=== PATIENT | female | born 1985 | race Caucasian/White ===

== ENCOUNTER 2019-06-18 21:34 | Emergency (ER) | payer OTHER ==
[2019-06-18 21:46] VITALS: TEMP 98.4; BMI 27.4
--- NOTE | 2019-06-18 22:04 | PDOC ---
Attending Attestation - Resident Resident Name: Mariajose Russo - ED Attending Attestation I have performed the following: I have examined & evaluated the patient, The case was reviewed & discussed with the resident, I agree w/resident's findings & plan - HPI HPI: 06/18/19 22:15 Pt comes with epigastric pain; states that it was one episode post prandial Pt ran out of her pantoprazol; she took her brother's pepcid with some relief. Last year's endoscopy shows gastritis. - Physicial Exam PE: 06/18/19 22:17 Pt has normal heart lungs afebrile no rashes HEENT normla + epigastric pain no flank pain no C/C/E - Medical Decision Making 06/18/19 22:55 We will check basic labs and ensure that this is a gastritis and not pancreatitis or cholecystitis. Pt is feeling better; we will hydrate and image as needed 06/18/19 23:22 Pt has a WBC count elevation and an eearly UTI. We will treat with bactrim DS 06/18/19 23:44 Pt's pain is returning; we will get a CT scan to r/o colitis; or other infectious cause of epigastric pain. 06/19/19 06:36 Patient Name: DARWIN KRAUS THIS IS A PRELIMINARY REPORT FROM [facility] DATE OF SERVICE: 2019-06-19 01:20:04 IMAGES: [id number] EXAM: ABDOMEN \T\ PELVIS CT WITH CONTR HISTORY: Abdominal pain COMPARISON: None. FINDINGS: 10 mm cavitated nodule noted in the left lower lobe.. The visualized cardiac chambers are normal size and configuration. There is questionable minimal pericholecystic edema. No biliary duct dilation. Normal liver, pancreas, spleen, adrenal glands and kidneys. Status post gastric sleeve The abdominal small and large bowel are normal. There is no aortic aneurysm. There is no significant retroperitoneal lymphadenopathy. The pelvic small and large bowel are normal. The appendix is normal. The uterus and adnexal structures are normal. Urinary bladder is unremarkable. There is no pelvic free fluid. No discrete pelvic lymphadenopathy is identified. IMPRESSION: 10 mm cavitating left lower lobe nodule could be related to infection or neoplasm and further evaluation with complete CT chest is recommended. An excellent right questionable gallbladder edema can be further evaluated with ultrasound. Pt has a copy of this finding and she will get a PMD and a pulmologist to f/u the lesion that was seen. She understand that this could be a cancer or an infection Heart Score/ECG Review - ECG Intrepretation Rhythm: Regular Rhythm - Salome Salome: Normal - P and OR Prominent R with upright T in V1 (true posterior [place]): No Delta Wave(s) Present: No WPW: No - QRS Poor R Wave Progression: No Q Wave Present: No
--- NOTE | 2019-06-18 22:13 | PDOC ---
History of Present Illness - General Chief Complaint: Pain Stated Complaint: ABDOMINAL PAIN Time Seen by Provider: 06/18/19 22:03 - History of Present Illness Initial Comments: 06/18/19 22:11 34 y/o F with no significant PMH except for obesity s/p gastric sleeve in 2012 and gastritis who presents to the ED because of sudden onset epigastric pain after eating shrimp at dinner time. Pt describes the pain as a sharp, 7/10 nonradiating, alleviated by pepcid and without any associated symptoms such as N /V/D/constipation. Pt's last endoscopy was a year or so ago where she was told she had inflammation of her esophagus then started on pantoprazole. She also endorses a remote history of hypertriglyceridemia. No hx of gallbladder or pancreatic disease. Allergies: none PMH: as above PSH: as above Social Hx: occasional drinker ROS: Constitutional: no fever,no chills HEENT: no throat pain, no dysphagia Cardiovascular: no chest pain, no palpitations Respiratory: cough, shortness of breath Gastrointestinal: epigastric pain but no Nausea and vomiting Genitourinary: no urgency,no dysuria Musculoskeletal: no myalgia, no arthralgia Skin: no bruising Neurologic: no weakness Psych: no agitation, no anxiety PE: VSS GEN: NAD Neuro: CN 2-12 intact,, motor strength 5/5 in all muscle groups, sensation intact throughout, 2+ reflexes in U&L extremities, gait normal HEENT: PERRLA, moist membrane, clear conjunctiva NECK: no JVD CHEST:vesicular breath sounds b/l no wheezing, no rales appreciated HEART:RRR, no murmur, rubs or gallop ABDOMEN: + BS, obese abdomen, NTND Extremities: 2+ pulses, no edema SKIN: no bruises MSK: no arthralgia, no joint tenderness assessment: indigestion vs GERD vs gallbladder/pancreatic dis vs cardiac least likely ( except for risk factor of obesity and abnormal lipids in the past) 06/18/19 22:50 Plan: cbc, cmp, lipase, cardiac profile, ekg, UA, Upreg protonix, mylanta and tylenol PO and 1L NS for symptomatic relief until labs return 06/18/19 23:00 CBC WBC 14.6 K/mm3 (4.0-10.0) H 06/18/19 22:30 RBC 4.42 M/mm3 (3.60-5.2) 06/18/19 22:30 Hgb 12.7 GM/dL (10.7-15.3) 06/18/19 22: Hct 38.6 % (32.4-45.2) 06/18/19 22:30 MCV 87.3 fl (80-96) 06/18/19 22: MCH 28.8 pg (25.7-33.7) 06/18/19 22: MCHC 33.0 g/dl (32.0-36.0) 06/18/19 22: RDW 14.7 % (11.6-15.6) 06/18/19: Plt Count 271 K/MM3 (134-434) 06/18/19 22: MPV 8.7 fl (7.5-11.1) 06/18/19: Absolute Neuts (auto) 11.1 K/mm3 (1.5-8.0) H 06/18/19 22: Neutrophils % 75.7 % (42.8-82.8) 06/18/19 22: Lymphocytes % 15.6 % (8-40) 06/18/19: Monocytes % 7.7 % (3.8-10.2) 06/18/19: Eosinophils % 0.5 % (0-4.5) 06/18/19: Basophils % 0.5 % (0-2.0) 06/18/19: Nucleated RBC % 0 % (0-0) 06/18/19: leukocytosis 14.6, upreg negative UA positive in light of healthy, adult, non woman will give bactrim for 3 days EKG [address]R no ST or TW abnormality 06/18/19 23:18 CMP Sodium 139 mmol/L (136-145) 06/18/19 22:30 Potassium 3.9 mmol/L (3.5-5.1) 06/18/19 22:30 Chloride 105 mmol/L (98-107) 06/18/19 22:30 Carbon Dioxide 26 mmol/L (21-32) 06/18/19 22: Anion Gap 7 MMOL/L (8-16) L 06/18/19 22:30 BUN 16.3 mg/dL (7-18) 06/18/19 22:30 Creatinine 0.8 mg/dL (0.55-1.3) 06/18/19 22:30 Est GFR (CKD-EPI)AfAm 113.06 06/18/19 22:30 Est GFR (CKD-EPI)NonAf 97.55 06/18/19 22:30 Random Glucose 97 mg/dL (74-106) 06/18/19 22: Calcium 9.0 mg/dL (8.5-10.1) 06/18/19 22:30 Total Bilirubin 0.6 mg/dL (0.2-1) 06/18/19 22:30 AST 77 U/L (15-37) H 06/18/19 22:30 ALT 56 U/L (13-61) 06/18/19 22:30 Alkaline Phosphatase 79 U/L (45-117) 06/18/19 22: Creatine Kinase 116 U/L (26-192) 06/18/19 22: Troponin I < 0.02 ng/ml (0.00-0.05) 06/18/19 22: Total Protein 8.5 g/dl (6.4-8.2) H 06/18/19 22:30 Albumin 4.1 g/dl (3.4-5.0) 06/18/19 22: Lipase 131 U/L (73-393) 06/18/19 22:30 lipase negative,AST elevated to 77 trop neg 06/18/19 23:43 pt continues to c/o abdominal pain. in the setting of unremarkable labs, will further assess abdomen with CT of A/P with IV contrast will also give 1mg of morphine 06/18/19 23:53 pt signed out to Dr Taylor for continuity Past History - Past Medical History Allergies/Adverse Reactions: Allergies Allergy/AdvReac Type Severity Reaction Status Date / Time No Known Allergies Allergy Verified 06/18/19 22:27 Home Medications: Ambulatory Orders Sulfamethoxazole/Trimethoprim [Bactrim Ds -] 1 tab PO BID #5 tablet 06/19/19 CVA: No COPD: No - Psycho Social/Smoking Cessation Hx Smoking History: Never smoked Have you smoked in the past 12 months: No Information on smoking cessation initiated: No Hx Alcohol Use: No Drug/Substance Use Hx: No *Physical Exam - Vital Signs Last Vital Signs Temp Pulse Resp BP Pulse Ox 98.4 F 82 16 125/60 100 06/18/19 21:43 06/18/19 21:43 06/18/19 21:43 06/18/19 21:43 06/18/19 21:43 ED Treatment Course - LABORATORY CBC & Chemistry Diagram: 06/18/19 22:30 06/18/19 22:30 Discharge - Discharge Information Problems reviewed: Yes Clinical Impression/Diagnosis: Epigastric pain, Cavitary lesion of lung UTI (urinary tract infection) Qualifiers: Urinary tract infection type: site unspecified Condition: Stable Disposition: HOME - Additional Discharge Information Prescriptions: Sulfamethoxazole/Trimethoprim [Bactrim Ds -] 1 tab PO BID #5 tablet - Follow up/Referral Referrals: Sajan Tabares MD, MD [Staff Physician] - - Patient Discharge Instructions Patient Printed Discharge Instructions: DI for Urinary Tract Infection (UTI) Additional Instructions: Follow up with your primary care doctor within 3 days regarding your Emergency Room visit. Your care is not complete until you follow up. Bring all paperwork given to you today to your appointment. Follow up with your primary care doctor regarding your CAT SCAN finding of a cavitary lesion in the lung. You must follow up within 3 days. I have provided you with a referral should you need it for our clinic system. Follow up with a [employer] regarding your CAT SCAN finding of a cavitary lesion in the lung. I have provided you with a referral should you need it. I have sent a prescription for Bactrim to treat your urinary tract infection. Take as advised on label. Take Tylenol over the counter for pain. Take as advised on label. Eat small meals consisting of soft foods. Follow up with your bariatric surgeon within 3 days regarding your Emergency Room visit. Your care is not complete until you follow up. Bring all paperwork given to you today to your appointment. Return to the Emergency Department for increasing pain, intractable vomiting, chest pain, shortness of breath, fever, or any other new, worsening or concerning symptoms. - Post Discharge Activity Work/Back to School Note: Back to Work
[2019-06-18] MEDS ORDERED: ACETAMINOPHEN 325 MG TABLET (FP) PO ONE (22:14)
[2019-06-18] MEDS ORDERED: PANTOPRAZOLE 40 MG TABLET PO ONE (22:14)
[2019-06-18] MEDS ORDERED: MAG HYDROX/AL HYDROX/SIMETH 30 ML UNIT-DOSE CUP PO ONE (22:18)
[2019-06-18] MEDS ORDERED: ACETAMINOPHEN 325 MG TABLET (FP) ONE (22:46)
[2019-06-18] MEDS ORDERED: MAG HYDROX/AL HYDROX/SIMETH 30 ML UNIT-DOSE CUP ONE (22:47)
[2019-06-18] MEDS ORDERED: PANTOPRAZOLE 40 MG TABLET ONE (22:47)
[2019-06-18 22:55] LABS: BASO % 0.5 % (0-2.0); EOS % 0.5 % (0-4.5); HEMATOCRIT 38.6 % (32.4-45.2); HEMOGLOBIN 12.7 GM/dL (10.7-15.3); LYMPH % 15.6 % (8-40); MCH 28.8 pg (25.7-33.7); MEAN CELL VOLUME 87.3 fl (80-96); MEAN PLT VOLUME 8.7 fl (7.5-11.1); MONO % 7.7 % (3.8-10.2); NEUT % 75.7 % (42.8-82.8); PLATELET COUNT 271 K/MM3 (134-434); RBC 4.42 M/mm3 (3.60-5.2); RDW 14.7 % (11.6-15.6); WHITE BLOOD COUNT 14.6 K/mm3 (4.0-10.0)
[2019-06-18 22:59] LABS: HYALINE CASTS 15 /lpf (0-8); PH,URINE 5.5 (5.0-8.0); URINE APPEARANCE CLOUDY; URINE BACTERIA 357.4 /hpf (NEGATIVE); URINE BILIRUBIN NEGATIVE (NEGATIVE); URINE COLOR YELLOW; URINE GLUCOSE (UA) NEGATIVE (NEGATIVE); URINE KETONE NEGATIVE (NEGATIVE); URINE LEUK ESTERASE 1+ (NEGATIVE); URINE NITRITE NEGATIVE (NEGATIVE); URINE PROTEIN NEGATIVE (NEGATIVE); URINE UROBILINOGEN 0.2 mg/dL (0.2-1.0); URINE WBC 30 /hpf (0-5)
[2019-06-18] MEDS ORDERED: SODIUM CHLORIDE 1,000 ML IV STA (22:59)
[2019-06-18] MEDS ORDERED: SULFAMETHOXAZOLE/TRIMETHOPRIM 800MG/160MG D.S. TABLET PO ONE (23:01)
[2019-06-18] MEDS ORDERED: SULFAMETHOXAZOLE/TRIMETHOPRIM 800MG/160MG D.S. TABLET ONE (23:04)
[2019-06-18 23:22] LABS: URINE RBC 6.1 /hpf (0-4)
[2019-06-18 23:23] LABS: URINE CRYSTALS MODERATE /hpf
[2019-06-18 23:33] LABS: ALBUMIN 4.1 g/dl (3.4-5.0); ALK PHOS 79 U/L (45-117); ANION GAP 7 MMOL/L (8-16); BILIRUBIN,TOTAL 0.6 mg/dL (0.2-1); BLOOD UREA NITROGEN 16.3 mg/dL (7-18); CHLORIDE 105 mmol/L (98-107); CO2 26 mmol/L (21-32); CREATININE 0.8 mg/dL (0.55-1.3); GLUCOSE,RANDOM 97 mg/dL (74-106); LIPASE 131 U/L (73-393); POTASSIUM 3.9 mmol/L (3.5-5.1); SGOT/AST 77 U/L (15-37); SGPT/ALT 56 U/L (13-61); SODIUM 139 mmol/L (136-145); TOT PROT 8.5 g/dl (6.4-8.2)
[2019-06-18] MEDS ORDERED: morphine CARPU-JECT 2 MG/1 ML DISP.SYRIN IVPUSH ONE (23:52)
[2019-06-19] MEDS ORDERED: MORPHINE SULFATE 2 MG/ML VIAL ONE
--- NOTE | 2019-06-19 00:10 | PDOC ---
ED Treatment Course - LABORATORY CBC & Chemistry Diagram: 06/18/19 22:30 06/18/19 22:30 - Medications Given in the ED: ED Medications Discontinued Medications Generic Name Dose Route Start Last Admin Trade Name Erich PRN Reason Stop Dose Admin Acetaminophen 650 mg 06/18/19 22:14 06/18/19 22:45 Tylenol - PO 06/18/19 22:15 650 mg ONCE ONE Administration Al Hydroxide/Mg Hydroxide 30 ml 06/18/19 22:18 06/18/19 22:45 Mylanta Oral Suspension - PO 06/18/19 22:19 30 ml ONCE ONE Administration Sodium Chloride 1,000 mls @ 1,000 mls/hr 06/18/19 22:59 06/18/19 23:06 Normal Saline - IV 06/18/19 23:58 1,000 mls/hr ASDIR STA Administration Morphine Sulfate 1 mg 06/18/19 23:52 06/18/19 23:54 Morphine Injection - IVPUSH 06/18/19 23:53 1 mg ONCE ONE Administration Pantoprazole Sodium 40 mg 06/18/19 22:14 06/18/19 22:45 Protonix - PO 06/18/19 22:15 40 mg ONCE ONE Administration Trimethoprim/Sulfamethoxazole 1 each 06/18/19 23:01 06/18/19 23:06 Bactrim Ds - PO 06/18/19 23:02 1 each ONCE ONE Administration Medical Decision Making - Medical Decision Making Pt signed out to me by Dr. Russo, see prior note. 34 year old female with PMH obesity, gastric sleeve c/o epigastric pain after eating shrimp. She took pepcid at home with minimal relied. Initial Vital Signs Temp Pulse Resp BP Pulse Ox 98.4 F 82 16 125/60 100 06/18/19 21:43 06/18/19 21:43 06/18/19 21:43 06/18/19 21:43 06/18/19 21:43 Laboratory Last Values WBC 14.6 K/mm3 (4.0-10.0) H 06/18/19 22:30 RBC 4.42 M/mm3 (3.60-5.2) 06/18/19 22:30 Hgb 12.7 GM/dL (10.7-15.3) 06/18/19 22:30 Hct 38.6 % (32.4-45.2) 06/18/19 22: MCV 87.3 fl (80-96) 06/18/19 22: MCH 28.8 pg (25.7-33.7) 06/18/19 22: MCHC 33.0 g/dl (32.0-36.0) 06/18/19 22:30 RDW 14.7 % (11.6-15.6) 06/18/19 22: Plt Count 271 K/MM3 (134-434) 06/18/19 22: MPV 8.7 fl (7.5-11.1) 06/18/19 22: Absolute Neuts (auto) 11.1 K/mm3 (1.5-8.0) H 06/18/19 22: Neutrophils % 75.7 % (42.8-82.8) 06/18/19 22: Lymphocytes % 15.6 % (8-40) 06/18/19: Monocytes % 7.7 % (3.8-10.2) 06/18/19 22: Eosinophils % 0.5 % (0-4.5) 06/18/19: Basophils % 0.5 % (0-2.0) 06/18/19: Nucleated RBC % 0 % (0-0) 06/18/19 22: Sodium 139 mmol/L (136-145) 06/18/19 22:30 Potassium 3.9 mmol/L (3.5-5.1) 06/18/19: Chloride 105 mmol/L (98-107) 06/18/19 22: Carbon Dioxide 26 mmol/L (21-32) 06/18/19 22:30 Anion Gap 7 MMOL/L (8-16) L 06/18/19 22:30 BUN 16.3 mg/dL (7-18) 06/18/19 22: Creatinine 0.8 mg/dL (0.55-1.3) 06/18/19 22:30 Est GFR (CKD-EPI)AfAm 113.06 06/18/19 22:30 Est GFR (CKD-EPI)NonAf 97.55 06/18/19 22:30 Random Glucose 97 mg/dL (74-106) 06/18/19 22:30 Calcium 9.0 mg/dL (8.5-10.1) 06/18/19: Total Bilirubin 0.6 mg/dL (0.2-1) 06/18/19 22: AST 77 U/L (15-37) H 06/18/19 22: ALT 56 U/L (13-61) 06/18/19 22: Alkaline Phosphatase 79 U/L (45-117) 06/18/19: Creatine Kinase 116 U/L (26-192) 06/18/19 22: Troponin I < 0.02 ng/ml (0.00-0.05) 06/18/19: Total Protein 8.5 g/dl (6.4-8.2) H 06/18/19: Albumin 4.1 g/dl (3.4-5.0) 06/18/19: Lipase 131 U/L (73-393) 06/18/19: Urine Color Yellow 06/18/19: Urine Appearance Cloudy 06/18/19: Urine pH 5.5 (5.0-8.0) 06/18/19: Ur Specific [place] 1.025 (1.010-1.035) 06/18/19: Urine Protein Negative (NEGATIVE) 06/18/19: Urine Glucose (UA) Negative (NEGATIVE) 06/18/19: Urine Ketones Negative (NEGATIVE) 06/18/19: Urine Blood Negative (NEGATIVE) 06/18/19: Urine Nitrite Negative (NEGATIVE) 06/18/19: Urine Bilirubin Negative (NEGATIVE) 06/18/19: Urine Urobilinogen 0.2 mg/dL (0.2-1.0) 06/18/19: Ur Leukocyte Esterase 1+ (NEGATIVE) H 06/18/19: Urine WBC (Auto) 30 /hpf (0-5) 06/18/19 22: Urine RBC (Auto) 6.1 /hpf (0-4) 06/18/19: Urine Casts (Auto) 15 /lpf (0-8) 06/18/19: U Epithel Cells (Auto) 8.0 /HPF (0-5/HPF) 06/18/19 22:30 Urine Crystals (Auto) Moderate /hpf 06/18/19 22:30 Urine Bacteria (Auto) 357.4 /hpf (NEGATIVE) 06/18/19 22:30 Urine HCG, Qual Negative 06/18/19 22:[address] abdomen/pelvis. Pt given Bactrim for UTI. Pt got mylanta, tylenol, pantoprazole with some improvement of pain. 06/19/19 02:16 CT report: Referring Physician: IRENA KELLY Comments: Papa Tomlinson MD wrote on Jun 19, 2019 at 02:11 AM: Referring Physician: IRENA KELLY Patient Name: DARWIN KRAUS THIS IS A PRELIMINARY REPORT FROM [facility] DATE OF SERVICE: 2019-06-19 01:20:04 IMAGES: [id number] EXAM: ABDOMEN \T\ PELVIS CT WITH CONTR HISTORY: Abdominal pain COMPARISON: None. FINDINGS: 10 mm cavitated nodule noted in the left lower lobe.. The visualized cardiac chambers are normal size and configuration. There is questionable minimal pericholecystic edema. No biliary duct dilation. Normal liver, pancreas, spleen, adrenal glands and kidneys. Status post gastric sleeve The abdominal small and large bowel are normal. There is no aortic aneurysm. There is no significant retroperitoneal lymphadenopathy. The pelvic small and large bowel are normal. The appendix is normal. The uterus and adnexal structures are normal. Urinary bladder is unremarkable. There is no pelvic free fluid. No discrete pelvic lymphadenopathy is identified. IMPRESSION: 10 mm cavitating left lower lobe nodule could be related to infection or neoplasm and further evaluation with complete CT chest is recommended. An excellent right questionable gallbladder edema can be further evaluated with ultrasound. One or more of the following dose reduction techniques were used: automated exposure control, adjustment of the mA and/or kV according to patient size, use of iterative reconstructive technique. THIS DOCUMENT HAS BEEN ELECTRONICALLY SIGNED Fabrice Tomlinson MD 06/19/2019 02:10 CHANEL MAsif. Please call [facility] [phone]) with questions. Papa Tomlinson MD Clinicians - Please contact [facility] with further questions at [phone]) Patients - Please contact your Ordering Provider with questions. Results explained to patient. Pt informed she must F/U with PCP regarding CT findings. Pt informed she must F/U with Bariatric surgeon for epigastric pain. Pt informed she must F/U with Pulmonology regarding CT findings. Discharge - Discharge Information Problems reviewed: Yes Clinical Impression/Diagnosis: Epigastric pain, Cavitary lesion of lung, UTI (urinary tract infection) Condition: Stable Disposition: HOME - Admission No - Additional Discharge Information Prescriptions: Sulfamethoxazole/Trimethoprim [Bactrim Ds -] 1 tab PO BID #5 tablet - Follow up/Referral Referrals: Sajan Tabares MD, MD [Staff Physician] - - Patient Discharge Instructions Patient Printed Discharge Instructions: DI for Urinary Tract Infection (UTI) Additional Instructions: Follow up with your primary care doctor within 3 days regarding your Emergency Room visit. Your care is not complete until you follow up. Bring all paperwork given to you today to your appointment. Follow up with your primary care doctor regarding your CAT SCAN finding of a cavitary lesion in the lung. You must follow up within 3 days. I have provided you with a referral should you need it for our clinic system. Follow up with a [employer] regarding your CAT SCAN finding of a cavitary lesion in the lung. I have provided you with a referral should you need it. I have sent a prescription for Bactrim to treat your urinary tract infection. Take as advised on label. Take Tylenol over the counter for pain. Take as advised on label. Eat small meals consisting of soft foods. Follow up with your bariatric surgeon within 3 days regarding your Emergency Room visit. Your care is not complete until you follow up. Bring all paperwork given to you today to your appointment. Return to the Emergency Department for increasing pain, intractable vomiting, chest pain, shortness of breath, fever, or any other new, worsening or concerning symptoms. - Post Discharge Activity Work/Back to School Note: Back to Work
[2019-06-19 01:22] VITALS: BP 155/85; PULSE 60
--- NOTE | 2019-06-19 12:06 | EKG ---
Test Reason : Blood Pressure : / mmHG Vent. Rate : 075 BPM Atrial Rate : 075 BPM P-R Int : 178 ms QRS Dur : 078 ms QT Int : 384 ms P-R-T Axes : 043 055 022 degrees QTc Int : 428 ms NORMAL SINUS RHYTHM NORMAL ECG NO PREVIOUS ECGS AVAILABLE Confirmed by MAGY VILCHIS MD ([id number]) on 06/19/2019 12:06:05 PM Referred By: Confirmed By:MAGY VILCHIS MD
== END 2019-06-19 02:40 | disposition home or self-care (01) ==
LOC: JER 21:34
PROC: 3E0337Z Introduction of Electrolytic and Water Balance Substance into Peripheral Vein, Percutaneous Approach (ICD-10-PCS; principal; 2019-06-18)
PROC: 3E033NZ Introduction of Analgesics, Hypnotics, Sedatives into Peripheral Vein, Percutaneous Approach (ICD-10-PCS; 2019-06-18)
DX: N39.0 Urinary tract infection, site not specified (principal); J98.4 Other disorders of lung
CPT/HCPCS: 36415; 74177-TC; 80053; 81003; 82550; 83690; 84484; 84703; 85025; 93005; 93010; 96361; 96374; 99285-25; J7030; Q9967

== ENCOUNTER 2023-07-20 04:12 | Day surgery (SDC) | payer OTHER ==
[2023-07-13 14:47] VITALS: BMI 27.4
[2023-07-20 13:08] VITALS: RESP 18
[2023-07-20] MEDS ORDERED: MIDAZOLAM HCL 2 MG/2 ML SINGLE DOSE VIAL ONE (13:47)
[2023-07-20] MEDS ORDERED: ONDANSETRON 4 MG/2 ML VIAL ONE (13:47)
[2023-07-20] MEDS ORDERED: FENTANYL CITRATE/PF 50 MCG/ML VIAL ONE (13:47)
[2023-07-20] MEDS ORDERED: KETOROLAC TROMETHAMINE 30 MG/1 ML VIAL ONE (13:48)
[2023-07-20 16:11] VITALS: BP 104/57; PULSE 66; TEMP 97.7
== END 2023-07-20 16:28 | disposition home or self-care (01) ==
LOC: JASU-SURG 04:12
PROVIDERS: ATTEND Urology
PROC: 0TF3XZZ Fragmentation in Right Kidney Pelvis, External Approach (ICD-10-PCS; principal; 2023-07-20 14:30)
DX: N20.0 Calculus of kidney (principal)
CPT/HCPCS: 81025